=== PATIENT | female | born 1970 | race Caucasian/White ===

== ENCOUNTER 2017-12-16 19:10 | Emergency (ER) | payer OTHER ==
[~2017-12-16] VITALS: Ht 157.5 cm; Wt 86.7 kg
--- OUTSIDE RECORDS SUMMARY | 2017-12-16 19:13 | XMS REPORT | Clinical Summary ---
Author Author [facility] Address Unknown Phone Unavailable Care Team Providers Care Machine [employer] Teacher Name Role Phone Yashira Calderon MD PCP Allergies Active Allergy Reactions Severity Noted Date Comments Diphenhydramine Hcl 01/05/2016 Erythromycin Other (See Comments) 12/02/2015 catatonic Sulfa (Sulfonamide Other (See Comments) 12/02/2015 Unknown reaction Antibiotics) Current Medications Prescription Sig. Disp. Refills Start End Date Status Date DULoxetine (CYMBALTA) 60 Take 1 capsule(s) every Active MG capsule day by oral route. naproxen sodium (ANAPROX Take 1 tablet (550 mg 60 tablet 3 12/02/19 Active DS) 550 MG total) by mouth 2 (two) 16 tabletIndications: times a day with meals. Cervical radiculopathy oxyCODone-acetaminophen Take 1 tablet by mouth 05/31/20 Active (PERCOCET) 10-325 mg per every 4 (four) hours as 17 tablet needed. armodafinil (NUVIGIL) 250 Take 1 tablet (250 mg 1 06/06/20 Active mg tablet total) by mouth daily. 17 buPROPion XL (WELLBUTRIN Take 1 tablet (300 mg 1 06/06/20 Active XL) 300 MG 24 hr tablet total) by mouth every 17 morning. epINEPHrine (EPIPEN) 0.3 INJECT INTRAMUSCULARLY 0 06/19/20 Active mg/0.3 mL auto-injector DIRECTED FOR TROUBLE BREATHING OR THROAT DISCOMFORT pregabalin (LYRICA) 50 MG Take 1 capsule (50 mg 60 capsule 3 12/02/19 06/06/20 Discontin capsuleIndications: total) by mouth 2 (two) 16 17 ued Cervical radiculopathy, times a day. Sciatica, unspecified laterality metaxalone (SKELAXIN) 800 TAKE ONE TABLET BY MOUTH 3 01/07/20 Discontin MG tablet TID 16 17 ued acetaminophen-codeine 02/03/20 06/06/20 Discontin (TYLENOL #3) 300-30 mg 16 17 ued per tablet metaxalone (SKELAXIN) 800 TAKE ONE TABLET BY MOUTH 90 tablet 0 06/06/20 Discontin MG tabletIndications: THREE TIMES DAILY 16 17 ued Cervical radiculopathy, Sciatica, unspecified laterality buPROPion XL (WELLBUTRIN Take 300 mg by mouth once 1 05/16/20 Discontin XL) 300 MG 24 hr tablet daily. 17 17 ued armodafinil (NUVIGIL) 250 Take 250 mg by mouth once 1 04/21/20 Discontin mg tablet daily. 17 17 ued hydrOXYzine (ATARAX) 25 Take 1 tablet (25 mg 120 tablet 0 06/20/20 07/20/20 MG tablet total) by mouth every 6 17 17 (six) hours as needed for itching for up to 30 days. ciprofloxacin (CIPRO) 500 Take 1 tablet (500 mg 14 tablet 0 08/29/19 09/05/19 MG tablet total) by mouth 2 (two) 18 18 times a day for 7 days. Active Problems Problem Noted Date Fibromyalgia 06/06/2017 Prediabetes 03/24/2016 MENA on CPAP 03/24/2016 Abnormal findings on diagnostic imaging of lung 02/05/2016 Osteoarthritis of cervical spine without myelopathy 02/05/2016 Depression 02/05/2016 Tobacco use 01/05/2016 Fibrocystic breast changes 12/02/2015 Menopausal flushing 12/02/2015 Prolapsed cervical intervertebral disc 03/09/2014 Spinal cord compression 03/09/2014 Encounters Date Type Specialty Care Team Description 08/29/2017 Office Visit Internal Medicine Yefri Calderon MD Dysuria (Primary Dx) 07/07/2017 Orders Only Internal Medicine ProviderPraneeth MD 06/20/2017 Office Visit Internal Medicine Yefri Calderon MD Urticaria (Primary Dx) 06/20/2017 Telephone Family Medicine Kojo Gibbons LVN 06/09/2017 Telephone Family Medicine Yefri Calderon MD 06/06/2017 Office Visit Internal Medicine Yefri Calderon MD Viral upper respiratory tract infection (Primary Dx); Tobacco use; Fibromyalgia; MENA on CPAP after 12/15/2016 Family History * Patient is adopted Medical History Relation Name Comments Breast cancer Maternal Elizabeth LATER IN LIFE Grandmother [place] Cancer Maternal Elizabeth I'm adopted but I know this Grandmother [place] Depression Mother Valorie Mcclain I'm adopted but I know this Early Mother Valorie Mcclain I'm adopted but I know this Fibromyalgia Mother Valorie Mcclain Raynaud syndrome Mother Valorie Mcclain Relation Name Status Comments Maternal Grandmother Elizabeth [place] Mother Valorie Mcclain Social History Tobacco Use Types Packs/Day Years Used Date Current Every Day Smoker Cigarettes 1 25 Smokeless Tobacco: Never Used Tobacco Cessation: Ready to Quit: No; Counseling Given: Yes Alcohol Use Drinks/Week oz/Week Comments No Sex Assigned at Date Recorded Not on file Last Filed Vital Signs Vital Sign Reading Time Taken Blood Pressure 126/76 08/29/2017 4:04 PM [employer] Pulse 75 08/29/2017 4:04 PM [employer] Temperature 37.1 C (98.7 F) 08/29/2017 4:04 PM [employer] Respiratory Rate 16 08/29/2017 4:04 PM [employer] Oxygen Saturation 96% 08/29/2017 4:04 PM [employer] Inhaled Oxygen - - Concentration Weight 86.2 kg (190 lb) 08/29/2017 4:04 PM [employer] Height 157.5 cm (5' 2") 08/29/2017 4:04 PM [employer] Body Mass Index 34.75 08/29/2017 4:04 PM [employer] Plan of Treatment Health Maintenance Due Date Last Done Comments INFLUENZA VACCINE 02/22/2018 CERVICAL CANCER SCREENING 08/11/2018 08/11/2015 Results * Urine culture (08/29/2017 4:17 PM) Component Value Ref Range Urine culture SEE NOTE Comment: CULTURE, URINE, ROUTINE MICRO NUMBER: [id number] TEST STATUS: FINAL SPECIMEN SOURCE: URINE SPECIMEN QUALITY: ADEQUATE RESULT: No Growth Specimen Performing Laboratory Urine [facility] * POC urinalysis dipstick (08/29/2017 4:16 PM) Component Value Ref Range Color urine, POC Colorless Clarity urine, POC Clear Glucose urine, POC Negative Negative Bilirubin urine, POC Negative Negative Ketones urine, POC Negative Negative Specific gravity urine, </=1.005 1.005 - 1.030 POC Blood urine, POC Negative Negative pH urine, POC 6.0 5.0, 5.5, 6.0, 6.5, 7.0, 7.5, 8.0, 8.5 Protein urine, POC Negative Negative Urobilinogen urine, POC <2.0 <2.0 Nitrite urine, POC Negative Negative Leukocyte esterase urine, Negative Negative POC Specimen Performing Laboratory Urine * Consult Allergy and Immunology (07/07/2017) after 12/15/2016 Insurance Payer Benefit Subscriber ID Type Phone Address Plan / Group [employer]/PHC xxxxxxxxx PPO [id number]
--- OUTSIDE RECORDS SUMMARY | 2017-12-16 19:13 | XMS REPORT | Clinical Summary ---
Author Author [facility] Address Unknown Phone Unavailable Care Team Providers Care Family Support Specialist Name Role Phone PCP Unavailable Allergies Active Allergy Reactions Severity Noted Date Comments Erythromycin Other (See Comments) 03/09/2014 catatonic Sulfa (Sulfonamide Other (See Comments) 03/09/2014 Unknown reaction Antibiotics) Current Medications Prescription Sig. Disp. Refills Start End Date Status Date DULoxetine (CYMBALTA) 30 Take 90 mg by mouth Active MG capsule daily. meloxicam (MOBIC) 15 MG Take 15 mg by mouth Active tablet daily. buPROPion (WELLBUTRIN XL) Take 300 mg by mouth Active 300 MG 24 hr tablet daily. naproxen (NAPROSYN) 500 Take 500 mg by mouth 2 Active MG tablet (two) times daily with breakfast and dinner. Active Problems Problem Noted Date Herniated disc, cervical 03/09/2014 Spinal cord compression (HCC) 03/09/2014 Social History Tobacco Use Types Packs/Day Years Used Date Current Every Day Smoker Cigarettes 0.5 Alcohol Use Drinks/Week oz/Week Comments No Sex Assigned at Date Recorded Not on file Last Filed Vital Signs Not on file Plan of Treatment Not on file Implants Implanted Type Area Internal Audit Director Device Expiration Model / Identifier Date Serial / Lot Dbroxanna Espositosophie Aseptic - Bone N/A: Spine MUSCULOSKELETAL 11/02/2015 [id number] / [id number] Cervical TRANSPLANT [id number] Implanted: Qty: 1 on 03/11/2014 by [id number] / Noel Leonard MD [employer]11 [employer] [id number] sophie Rodriguez Aseptic - Bone N/A: Spine MUSCULOSKELETAL 11/02/2015 / [id number] Cervical TRANSPLANT [id number] Implanted: Qty: 1 on 03/11/2014 by [id number] / Noel Leonard MD [address] [facility] [id number] Dbx Putty,1cc Aseptic - Bone N/A: Spine MUSCULOSKELETAL 11/02/2015 [id number] / [id number] Cervical TRANSPLANT [id number] Implanted: Qty: 1 on 03/11/2014 by [id number] / Noel Leonard MD 9311 Spacer,Vertebral Cr Lordotic 7mm - Spine N/A: Spine [employer] 889.923 / [id number] Cervical / Implanted: Qty: 2 on 03/11/2014 by Noel Leonard MD Screw,Cerv Ti S/R Selfdrill Fixed Spine N/A: [employer]ine [employer] [id number] Ang 4.0x14mm - [id number] Cervical / Implanted: Qty: 6 on 03/11/2014 by / Noel Leonard MD Plate,Vectra Ti 2 Level 38mm - Spine N/A: [employer]ine [employer] 04.613.138 [id number] Cervical / Implanted: Qty: 1 on 03/11/2014 by / Noel Leonard MD Grafixprime Multipotent Cellular N/A: Spine 06/23/2014 [id number] / Reparir Matrix Cervical / Implanted: Qty: 1 on 03/11/2014 by [id number] Noel Leonard MD Results Not on fileafter 12/15/2016
[2017-12-16] MEDS ORDERED: WELLBUTRIN XL300 MG (20:27)
[2017-12-16] MEDS ORDERED: GABAPENTIN100 MG (20:27)
[2017-12-16] MEDS ORDERED: CYMBALTA30 MG (20:27)
[2017-12-16] MEDS ORDERED: PERCOCET 10-321 EACH (20:27)
[2017-12-16] MEDS ORDERED: ABILIFY5 MG PO (20:27)
[2017-12-16] MEDS ORDERED: [UNRECOGNIZED DRUG - OTHER] PO (20:27)
[2017-12-16] MEDS ORDERED: KETOROLAC TROMETHAMINE 60 MG/2 ML VIAL IM ONE (20:30)
== END 2017-12-16 22:30 | disposition home or self-care (01) ==
LOC: FSED 19:10
DX: S20.219A Contusion of unspecified front wall of thorax, initial encounter (principal); S27.1XXA Traumatic hemothorax, initial encounter; S16.1XXA Strain of muscle, fascia and tendon at neck level, initial encounter; S23.3XXA Sprain of ligaments of thoracic spine, initial encounter; S33.5XXA Sprain of ligaments of lumbar spine, initial encounter; S46.811A Strain of other muscles, fascia and tendons at shoulder and upper arm level, right arm, initial encounter; V43.52XA Car driver injured in collision with other type car in traffic accident, initial encounter; Y92.488 Other paved roadways as the place of occurrence of the external cause
CPT/HCPCS: 71046; 72125; 72128; 73030; 99283; J1885